=== PATIENT | female | born 1930 | race Caucasian/White ===

== ENCOUNTER 2016-08-03 08:14 | Emergency (ER) | payer OTHER ==
[2016-08-03 09:10] VITALS: BP 164/102
== END 2016-08-03 09:57 | disposition home or self-care (01) ==
LOC: ER 08:21
DX: S01.01XA Laceration without foreign body of scalp, initial encounter (principal); I10 Essential (primary) hypertension; Z85.3 Personal history of malignant neoplasm of breast; W19.XXXA Unspecified fall, initial encounter; Y93.89 Activity, other specified; Y99.8 Other external cause status; Y92.89 Other specified places as the place of occurrence of the external cause
CPT/HCPCS: 12001; 70450

== ENCOUNTER 2017-07-18 11:28 | Observation (INO) | payer OTHER ==
[~2017-07-18] VITALS: Ht 167.6 cm; Wt 72.6 kg
[2017-07-18 12:07] LABS: Basophils # (auto) 0.1 uL; Eosinophils # (auto) 0 uL; Eosinophils % (auto) 0.4 % (0.0-7.0); Hemoglobin 11.1 g/dL (12.2-16.2); Mean Platelet Volume 7.5 fL (6.9-10.8); Monocytes # (auto) 0.9 uL; Neutrophils # (auto) 6.9 uL
[2017-07-18 12:09] LABS: Hematocrit 34.5 % (36.0-46.0); Lymphocytes % (auto) 10.9 % (10.0-50.0); Mean Corpuscular Hemoglobin 24.8 pg (28.0-32.0); Mean Corpuscular Volume 77.4 fL (80.0-100.0); Neutrophils % (auto) 77.7 % (37.0-80.0); Platelet Count (auto) 203 10^3/uL (140-450); White Blood Cell 8.9 10^3/uL (4.4-10.8)
[2017-07-18 12:19] LABS: Red Cell Distribution Width 23.6 % (11.8-14.3)
[2017-07-18 12:44] LABS: Anisocytosis Slight; Hypochromia Slight; Microcytosis Slight; Platelet Estimate Adequate
[2017-07-18 12:46] LABS: Albumin 2.6 g/dL (3.4-5.0); Bilirubin, Total 0.7 mg/dL (0.2-1.0); Calcium 8.1 mg/dL (8.5-10.1); Potassium 3.2 mmol/L (3.5-5.1); Total Protein 6.7 g/dL (6.4-8.2)
[2017-07-18 14:14] LABS: Urine Bilirubin Negative (Negative); Urine Blood TRACE /uL (Negative); Urine Color Yellow (Yellow); Urine Glucose Normal (Normal); Urine Ketone Negative (Negative); Urine Mucus MODERATE (None Seen); Urine Nitrite POSITIVE (Negative); Urine RBC 8 /hpf (0 - 4); Urine Urobilinogen Normal (Negative); Urine WBC Clumps PRESENT /hpf (None Seen)
[2017-07-18] MEDS ORDERED: POTASSIUM CHL 20 Meq TABLET PO ONE (14:30)
[2017-07-18] MEDS ORDERED: cefTRIAXone 1GM/10ml IVPUSH 10 ML IV ONE (14:30)
[2017-07-18] MEDS ORDERED: POTASSIUM CHL 20MEQ/50ML 50 ML IV ONE (14:51)
[2017-07-18] MEDS: POTASSIUM CHL 20MEQ/50ML 50 ML IV SCH ×2 (15:17→17:18)
[2017-07-18] MEDS ORDERED: SODIUM CHLORIDE 0.9% 1,000 ML IVB ONE (15:41)
[2017-07-18] MEDS ORDERED: AZITHROMYCIN 500MG/ 250ML 250 ML IV ONE (15:45)
[2017-07-18] MEDS ORDERED: PANTOPRAZOLE 40 MG/10 ML VIAL IV ONE (18:15)
[2017-07-18 23:59] VITALS: BP 163/84
== END 2017-07-19 00:33 | disposition short-term general hospital (02) | DRG 194 ==
LOC: EDUNIT# 11:28 → EDBD 11:28 → ER 11:28 → OVERFLOW 15:42 → ER 07-19 00:33
PROVIDERS: ADMIT Family Medicine; ATTEND Family Medicine
DX: J18.9 Pneumonia, unspecified organism (principal); N30.00 Acute cystitis without hematuria; D50.0 Iron deficiency anemia secondary to blood loss (chronic); E87.6 Hypokalemia; K29.50 Unspecified chronic gastritis without bleeding; I10 Essential (primary) hypertension
CPT/HCPCS: 36415; 71020; 80053; 81001; 83605; 84484; 85025; 87040; 93005; 96365; 96366; 96375; 99291; C9113; G0378; J0456; J7030